=== PATIENT | female | born 1980 | race Caucasian/White ===

== ENCOUNTER 2017-10-18 11:05 | Day surgery (SDC) | payer OTHER ==
[2017-10-15 09:11] VITALS: BMI 23.0
[2017-10-18] MEDS ORDERED: Oxytocin 20 units in LR 0 ML IV ONE (11:50)
[2017-10-18 12:27] LABS: HEMOGLOBIN 14.3 g/dL (12.0-16.0); MEAN CELL VOLUME 90.5 fl (81.0-99.0); MEAN CORPUSCULAR HEMOGLOBIN 31.3 pg (27.0-31.0); MEAN CORPUSCULAR HGB CONC 34.6 g/dL (33.0-37.0); RBC 4.57 Mil/uL (3.80-5.20); RED CELL DISTRIBUTION WIDTH 13.8 % (11.5-14.5)
[2017-10-18] MEDS ORDERED: Propofol 10 mg/ml Inj (20 ML) ONE (12:35)
[2017-10-18] MEDS ORDERED: Midazolam 2 MG/2 ML VIAL ONE (12:36)
[2017-10-18] MEDS ORDERED: Doxycycline 100 mg Inj ONE (12:42)
[2017-10-18] MEDS ORDERED: Dexamethasone 4 mg/1 ml ONE (12:42)
[2017-10-18] MEDS ORDERED: Lactated Ringer's 1,000 ML IV ONE (12:45)
[2017-10-18] MEDS ORDERED: ePHEDrine 50 mg/ml Inj ONE (12:54)
[2017-10-18] MEDS ORDERED: Oxycodone/Acetaminophen 5/325 mg Tab PO PRN (13:18)
[2017-10-18] MEDS ORDERED: HYDROmorphone 0.5 mg/0.5 ml ISec IVP PRN (13:22)
[2017-10-18] MEDS ORDERED: Lactated Ringer's 1,000 ML IV SCH ×2 (13:30)
[2017-10-18 14:57] VITALS: RESP 18
[2017-10-18 15:24] VITALS: BP 112/60; PULSE 100; TEMP 98.2; O2SAT 100
--- NOTE | 2017-10-19 14:28 | OP ---
PROCEDURE DATE: 10/18/2017 PREOPERATIVE DIAGNOSIS: Missed . FINDINGS: 6-week size anteverted uterus with cervix closed, moderate amount of products of consumption. POSTOPERATIVE DIAGNOSIS: Missed . SURGEON: Bre Blanco MD TYPE OF ANESTHESIA: General. ANESTHESIA ADMINISTERED BY: Dr. Farnsworth. TOTAL FLUID INPUT: 600 mL. URINE OUTPUT: 50 mL of clear. TOTAL BLOOD LOSS: 100 mL with products of consumption. COMPLICATIONS: None. CONDITIONS: Stable. PATHOLOGY: Products of consumption. DESCRIPTION OF PROCEDURE: The risks, benefits, and alternatives and indications of the procedure were discussed with the patient. The patient voiced understanding of the procedure and signed the consent. The patient was taken to the OR where general anesthesia was administered without difficulty. She was placed in dorsal lithotomy position with Kamran type stirrups. An exam under anesthesia revealed a 6-week size anteverted uterus with the cervix closed. The patient was prepped and draped in the normal sterile fashion. The patient was given doxycycline preoperatively. A weighted speculum was inserted in the posterior fornix of the vagina and single tooth tenaculum was used to grasp the anterior lip of the cervix. A Ayers catheter was used between the bladder, which drained about 50 mL. The cervix was dilated with Hegar dilator to the size of 7. A 7 mm suction curette was advanced to the uterine fundus. Dissection was then started. The products of consumption were evacuated with the curette rotating on the outward movement. A gentle sharp curettage was then performed with the large curette. The suction curette was then introduced to clear the uterus. The tenaculum was removed from the cervix and good hemostasis was noted. The patient tolerated the procedure well. The instruments and sponge counts were correct x2. The patient was awoken from general anesthesia and taken to the recovery room in stable condition. The patient will go home after recovery from anesthesia and meeting all the criteria for discharge, we gave instructions to follow up in the office in 2 weeks and was given a prescription for Percocet for 5 tabs. The patient was Rh positive. Bre Blanco MD
== END 2017-10-18 15:35 | disposition home or self-care (01) ==
LOC: H.OPSURG 11:05
PROVIDERS: ATTEND Obstetrics & Gynecology
DX: O02.1 Missed abortion (principal); I10 Essential (primary) hypertension
CPT/HCPCS: 36415; 59820; 85027; 86850; 86900; 88305; J1100; J2001; J2250; J2704; J2765; J3010; J7030; J7120